=== PATIENT | female | born 1965 | race Caucasian/White ===

== ENCOUNTER 2017-04-06 07:50 | Emergency (ER) | payer MEDICARE ==
[2017-04-06 09:02] LABS: BASOPHILS 0.2 % (0-2); EOSINOPHILS 1.6 % (0-7); HEMATOCRIT 40.4 % (36.0-48.0); HEMOGLOBIN 12.9 g/dL (12-16); IMMATURE GRANULOCYTES 0.1 % (0-5); LYMPHOCYTES 16.8 % (15-50); MCH 26.9 pg (26.0-34.0); MCHC 31.9 g/dL (31.0-37.0); MCV 84.2 fL (80.0-100.0); MEAN PLATELET VOLUME 9.3 fL (7.4-10.4); MONOCYTES 12.5 % (2-11); NEUTROPHILS 68.8 % (40-80); PLATELET COUNT 387 10x3/uL (130-400); WBC 8.3 10x3/uL (4.8-10.8)
[2017-04-06 09:16] LABS: ALBUMIN 3.8 g/dL (3.4-5.0); ALKALINE PHOSPHATASE 140 U/L (46-116); ALT (SGPT) 17 U/L (10-68); BILIRUBIN - TOTAL 0.36 mg/dL (0.2-1.3); CALC OSMOLALITY 273 mosm/kg (275-300); CALCIUM 9.4 mg/dL (8.5-10.1); CARBON DIOXIDE 28.4 mmol/L (21.0-32.0); CHLORIDE - SERUM 98 mmol/L (98-107); CREATININE - SERUM 0.8 mg/dL (0.6-1.3); GLUCOSE 110 mg/dL (74-106); PROTEIN - SERUM 7.4 g/dL (6.4-8.2); SODIUM 137 mmol/L (136-145); UREA NITROGEN 11 mg/dL (7-18); eGFR NON AFRICAN AMERICAN 80 mL/min (90-120)
[2017-04-06 09:20] LABS: TROPONIN-I < 0.017 ng/mL (0.000-0.060)
== END 2017-04-06 13:21 | disposition home or self-care (01) ==
LOC: D.ER 07:50
PROVIDERS: Family Medicine
DX: S22.49XA Multiple fractures of ribs, unspecified side, initial encounter for closed fracture (principal); X58.XXXA Exposure to other specified factors, initial encounter; Y93.89 Activity, other specified; Y92.89 Other specified places as the place of occurrence of the external cause; F32.9 Major depressive disorder, single episode, unspecified; F41.0 Panic disorder [episodic paroxysmal anxiety]; F43.10 Post-traumatic stress disorder, unspecified; R00.0 Tachycardia, unspecified

== ENCOUNTER 2017-12-03 22:38 | Emergency (ER) | payer MEDICARE | END 2017-12-03 23:42 | disposition home or self-care (01) | LOC: D.ER 22:38 | DX: H26.9 Unspecified cataract (principal); L01.00 Impetigo, unspecified; F17.200 Nicotine dependence, unspecified, uncomplicated ==

== ENCOUNTER 2019-11-25 15:14 | Emergency (ER) | payer MEDICARE ==
[~2019-11-25] VITALS: Ht 170.2 cm; Wt 95.9 kg
[2019-11-25 15:27] VITALS: Ht 170.2 cm; Wt 95.9 kg
[2019-11-25] MEDS ORDERED: LYRICA150 MG (15:30)
[2019-11-25] MEDS ORDERED: LEVO-T100 MCG (15:30)
[2019-11-25] MEDS ORDERED: K-DUR20 MEQ (15:31)
[2019-11-25] MEDS ORDERED: CALCIUM 600 +1 EAC3 (15:31)
[2019-11-25] MEDS ORDERED: XANAX2 MG (15:31)
[2019-11-25] MEDS ORDERED: EZFE 200200 MG (15:32)
[2019-11-25] MEDS ORDERED: NIACIN100 MG (15:32)
[2019-11-25] MEDS ORDERED: FUROSEMIDE20 MG (15:32)
[2019-11-25] MEDS ORDERED: TENORMIN25 MG (15:33)
[2019-11-25] MEDS ORDERED: VIBRAMYCIN 100100 MG PO (16:13)
[2019-11-25] MEDS ORDERED: VOLTAREN75 MG PO (16:13)
[2019-11-25 17:02] VITALS: BP 168/72
== END 2019-11-25 17:01 | disposition home or self-care (01) ==
LOC: D.ER 15:14
DX: L02.31 Cutaneous abscess of buttock (principal); E07.9 Disorder of thyroid, unspecified; I20.9 Angina pectoris, unspecified; J44.9 Chronic obstructive pulmonary disease, unspecified; Z72.0 Tobacco use; G62.9 Polyneuropathy, unspecified